=== PATIENT | male | born 1960 | race Caucasian/White ===

== ENCOUNTER 2020-09-22 08:46 | Outpatient (CLI) | payer OTHER ==
[2020-09-22 09:38] VITALS: BP 146/96
--- NOTE | 2020-09-22 09:38 | SLEEP CARE CONSULTATION ---
Information from patient questionnaire entered by Alix Garber. I have reviewed and concur with the information entered by Alix Garber. This document represents the service I personally performed and the decisions made by , Dory Richards ARNP. History of Present Illness Service Date and Time: 09/22/2020 0846 Reason for Visit: New patient, Previously diagnosed sleep apnea, sleep apnea on CPAP therapy Chief Complaint: reports: Snoring, Observed pauses in breathing, Other (Sleep Apnea - diagnosis) Date of Onset: 30 years plus Usual bedtime: 1 am Time it takes to fall asleep: seconds Snores at night: Yes Observed to quit breathing while asleep: Yes Sleeps alone due to snoring: No Number of times waking at night: not often Toss, Turn, or Twitch while sleeping: No Recalls having dreams: No Usually gets out of bed at: 9 am Feels refreshed in the morning: No Morning headache: No Sleepy or fatigued during the day: No Ever fallen asleep while driving: No Takes day naps: No Dreams during day naps: No Prior sleep studies: Yes Year and Where: 2019 - [facility] Additional HPI information: LASHAUN FLORES was diagnosed to have severe, AHI 24 (RDI 36) 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 - Parasomnia Symptoms Ever been unable to move upon waking from sleep: No Walks in sleep: No Talks in sleep: No Ever acted out dreams in sleep: No Ever felt weak in the knees when startled or emotional: No Bothered by creepy, crawly, restless sensations in legs: No Problems with memory or concentration: Yes CPAP Compliance Data - Data Reviewed with Patient Average duration of nightly device use: 28 minutes, 56 seconds Compliance rate %: 0 Current pressure setting (cmH2O): 5-11 Average residual AHI: 35.2 Central apnea: 6.2 Obstructive apnea: 24.9 Hypopnea: 4.1 Average large leak: 0 seconds Compliance data discussion: He obtained his current machine in late March but was unable to use it due to the pressure not being set up on right pressure setting. He is using a [employer].iowear Wisp nasal mask that he finds comfortable. Subjective Missed days of use due to: reports: other (couldn't sleep with machine due to current pressure) Patient concerns: reports: aerophagia. denies: mask discomfort, air blowing in eyes, mask leak noise, condensation in mask/hose, nasal congestion, dry mouth, nose, throat, epistaxis, other Observed to snore while using device: No (don't know for sure) Current pressure setting perceived as: too high On therapy, patient: reports: sleeping better, awakening more refreshed, being more awake and alert during the day, more rested overall. 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 Patient is and lives in [place]. Have you smoked in the past 12 months: No Alcohol use: Yes Alcohol amount and frequency: every 2-3 days Caffeine use: Yes Caffeine amount and frequency: 4 cups coffee daily Family History Family history of sleep disordered breathing: Yes (brother) Family Hx Sleep Apnea: Sibling: Snoring Allergies and Home Medications Drug allergies reviewed: Yes (NKDA) Home medication list reviewed: Yes Allergy and home medication list: [facility] Review of Systems Weight gain over past 5 years: 10 Cardiovascular: denies: high blood pressure Gastrointestinal: denies: heartburn Neurological: denies: headaches Psychiatric: denies: anxiety, depression Ear/Nose/Throat: reports: wisdom teeth removed. denies: tonsillectomy Immunologic: reports: allergies to food or environment Physical Exam Blood Pressure: 146/96 Cuff size: wrist Heart Rate: 80 O2 Saturation: 98 Height: 5 ft 8 in Weight: 176 lb Body Mass Index: 26.7 BMI Classification: Overweight Impression and Plan 1. Obstructive Sleep Apnea-Hypopnea Syndrome, severe, with poor treatment compliance and poor apnea control but he has not been using the machine. On CPAP therapy prior to being unable to use the machine, the patient has had better sleep quality and is more rested overall. He brought in his records and we were able to obtain copies of his last sleep study in 2019. He bought his own machine and he needs the machine set with appropriate pressure so he may use the machine. It is currently set on 6-11 cmH2O which was too much and causing aerophagia. The machine will be adjusted in office to 6-8 cmH2O and we will follow up with him in 1-2 months. He does not have a current DME for supplies. We can set him up once we have current compliance information. Patient's apnea severity and rationale for treatment to reduce apnea, improve sleep quality and reduce cardiovascular and cerebrovascular events was reviewed. * Change auto CPAP pressure at 6-8 cmH2O * Notify me if snoring with mask or feeling that the pressure is too much or too little * Attempt to lose weight * Call this office if any problems using CPAP * Return for follow up in 1-2 months , or sooner if concerns arise Counseling Topics: Weight loss health impact Visit Type: In Office Time Spent with Patient (minutes): 36 Provider Statement: I spent 100% of the Face to Face Visit with the patient with greater than 50% spent counseling the patient and coordination of care.
== END 2020-09-22 08:47 | disposition home or self-care (01) ==
LOC: SC 08:46
PROVIDERS: ATTEND Nurse Practitioner Family
DX: G47.33 Obstructive sleep apnea (adult) (pediatric) (principal); E66.3 Overweight; Z68.26 Body mass index [BMI] 26.0-26.9, adult
CPT/HCPCS: 99203; 99212

== ENCOUNTER 2020-09-22 09:06 | Outpatient (CLI) | payer OTHER ==
[2020-09-22 12:28] LABS: BASOPHILS % (AUTO) 0.6 %; EOSINOPHILS # (AUTO) 0.3 10^3/uL (0.0-0.7); HCT - HEMATOCRIT 47.9 % (42.0-52.0); HGB - HEMOGLOBIN 15.9 g/dL (14.0-18.0); LYMPHOCYTES # (AUTO) 1.7 10^3/uL (1.5-3.5); LYMPHOCYTES % (AUTO) 34.1 %; MEAN CORPUSCULAR HEMOGLOBIN 30.3 pg (27.0-31.0); MEAN CORPUSCULAR HGB CONC 33.2 g/dL (32.0-36.0); MEAN CORPUSCULAR VOLUME 91.2 fL (80.0-94.0); MEAN PLATELET VOLUME 9.9 fL (7.4-11.4); MONOCYTES # (AUTO) 0.5 10^3/uL (0.0-1.0); MONOCYTES % (AUTO) 10.5 %; NEUTROPHILS # (AUTO) 2.4 10^3/uL (1.5-6.6); NEUTROPHILS % (AUTO) 48.4 %; PLT - PLATELET COUNT 225 10^3/uL (130-450); RED BLOOD COUNT 5.25 10^6/uL (4.70-6.10)
[2020-09-22 12:49] LABS: ALBUMIN 4.9 g/dL (3.2-5.5); ALBUMIN/GLOBULIN RATIO 1.4 (1.0-2.2); BILIRUBIN,TOTAL 0.8 mg/dL (0.2-1.0); CALCIUM 9.4 mg/dL (8.5-10.3); CREATININE 0.9 mg/dL (0.6-1.2); POTASSIUM 4.2 mmol/L (3.5-5.0); TOTAL PROTEIN 8.3 g/dL (6.7-8.2)
[2020-09-22 12:50] LABS: PT - PROTHROMBIN TIME 10.9 secs (9.9-12.6)
[2020-09-22 12:58] LABS: PARTIAL THROMBOPLASTIN TIME 27.9 secs (24.9-33.3)
== END 2020-09-22 09:07 | disposition home or self-care (01) ==
LOC: LAB.N 09:06
PROVIDERS: ATTEND Internal Medicine
DX: K06.8 Other specified disorders of gingiva and edentulous alveolar ridge (principal); G47.39 Other sleep apnea; Z12.5 Encounter for screening for malignant neoplasm of prostate
CPT/HCPCS: 36415; 80053; 84153; 85025; 85610; 85730

== ENCOUNTER 2020-11-03 09:44 | Outpatient (CLI) | payer OTHER ==
--- NOTE | 2020-11-03 10:25 | SLEEP CARE CONSULTATION ---
Information from patient questionnaire entered by Alix Garber. I have reviewed and concur with the information entered by Alix Garber. This document represents the service I personally performed and the decisions made by , Dory Richards ARNP. History of Present Illness Service Date and Time: 11/03/2020 0944 Previous diagnosis: Moderate, Obstructive Sleep Apnea-Hypopnea Syndrome AHI: 24 (in 2019)(RDI - 36) Reason for follow up: other (6 week with pressure change) Equipment type: CPAP Mask style: Nasal Mask brand: Respironics (Wisp) Backup mask available: Yes (old mask) Last cushion change: years Prior sleep studies: Yes Year and Where: 2019 - [facility] in [facility] additional information: LASHAUN FLORES was diagnosed to have moderate, AHI 24 (RDI 36), obstructive sleep apnea-hypopnea syndrome and returned today for CPAP therapy 6 week pressure change/compliance follow-up. CPAP Compliance Data - Data Reviewed with Patient Average duration of nightly device use: 5 hr 10 min Compliance rate %: 76.7 Current pressure setting (cmH2O): 6-8 Humidity settin Heated hose settin Average residual AHI: 1.5 Average large leak: 1 min Subjective Patient concerns: reports: dry mouth, nose, throat (does not have a humidity chamber), epistaxis. denies: aerophagia, mask discomfort, air blowing in eyes, mask leak noise, condensation in mask/hose, nasal congestion, other Observed to snore while using device: No Current pressure setting perceived as: too low On therapy, patient: reports: sleeping better, awakening more refreshed, being more awake and alert during the day, more rested overall. denies: drowsiness while driving Initial [place] Sleepiness Scale score: 5 (in 2020) Current [place] Sleepiness Scale score: 2 Allergies and Home Medications Home medication list reviewed: Yes (no new meds) Review of Systems Review of systems same as previous: Yes (no changes) Physical Exam Heart Rate: 87 O2 Saturation: 96 Height: 5 ft 8 in Weight: 176 lb Body Mass Index: 26.7 BMI Classification: Overweight Impression and Plan 1. Obstructive Sleep Apnea-Hypopnea Syndrome, moderate, with adequate treatment compliance and good apnea control. On CPAP therapy, the patient has better sleep quality and is more rested overall. He is now compliant and we can transfer his DME and update his supplies. I will have my office service coordinator inform of DME options. A DWO prescription will then be made. Patient advised to contact this office if further supply problems. He has been having dry mouth and nose with some epistaxis. Oral dryness can be reduced by adjusting humidity setting higher or heated hose lower or by adjusting both settings. He did not get a humidity chamber when he bought his Dreamstation. He should be able to get a water chamber for his machine now which will help reduce oral dryness and epistaxis. He also states he feels the pressure is too low. I will adjust his pressure to 8-10 cmH2O. Goals for apnea control discussed. Patient's apnea severity and rationale for treatment to reduce apnea, improve sleep quality and reduce cardiovascular and cerebrovascular events was reviewed. * Change auto CPAP pressure to 8-10 cmH2O * Transfer DME and update supplies * Notify me if snoring with mask or feeling that the pressure is too much or too little * Attempt to lose weight * Call this office if any problems using CPAP * Return for follow up in 1-2 months, or sooner if concerns arise Counseling Topics: Spare mask, Weight loss health impact Visit Type: In Office Time Spent with Patient (minutes): 21 Provider Statement: I spent 100% of the Face to Face Visit with the patient with greater than 50% spent counseling the patient and coordination of care.
== END 2020-11-03 09:45 | disposition home or self-care (01) ==
LOC: SC 09:44
PROVIDERS: ATTEND Nurse Practitioner Family
DX: G47.33 Obstructive sleep apnea (adult) (pediatric) (principal); E66.3 Overweight; Z68.26 Body mass index [BMI] 26.0-26.9, adult
CPT/HCPCS: 99212; 99213

== ENCOUNTER 2020-11-03 10:35 | Outpatient (CLI) | payer OTHER ==
[2020-11-03 18:21] LABS: BASOPHILS % (AUTO) 0.6 %; EOSINOPHILS # (AUTO) 0.3 10^3/uL (0.0-0.7); EOSINOPHILS % (AUTO) 4.3 %; HCT - HEMATOCRIT 49.8 % (42.0-52.0); HGB - HEMOGLOBIN 16.7 g/dL (14.0-18.0); LYMPHOCYTES # (AUTO) 1.4 10^3/uL (1.5-3.5); LYMPHOCYTES % (AUTO) 20.5 %; MEAN CORPUSCULAR HEMOGLOBIN 31.1 pg (27.0-31.0); MEAN CORPUSCULAR HGB CONC 33.5 g/dL (32.0-36.0); MEAN CORPUSCULAR VOLUME 92.7 fL (80.0-94.0); MEAN PLATELET VOLUME 10.1 fL (7.4-11.4); MONOCYTES # (AUTO) 0.6 10^3/uL (0.0-1.0); MONOCYTES % (AUTO) 9.1 %; NEUTROPHILS # (AUTO) 4.4 10^3/uL (1.5-6.6); NEUTROPHILS % (AUTO) 65.2 %; PLT - PLATELET COUNT 238 10^3/uL (130-450); RED BLOOD COUNT 5.37 10^6/uL (4.70-6.10); RED CELL DISTRIBUTION WIDTH 12.9 % (12.0-15.0); WHITE BLOOD COUNT 6.7 x10^3/uL (4.8-10.8)
[2020-11-03 18:44] LABS: ALBUMIN 4.8 g/dL (3.2-5.5); ALBUMIN/GLOBULIN RATIO 1.5 (1.0-2.2); BILIRUBIN,TOTAL 1.2 mg/dL (0.2-1.0); CALCIUM 9.8 mg/dL (8.5-10.3); CREATININE 0.8 mg/dL (0.6-1.2); POTASSIUM 4.1 mmol/L (3.5-5.0); TOTAL PROTEIN 7.9 g/dL (6.7-8.2)
== END 2020-11-03 10:36 | disposition home or self-care (01) ==
LOC: LAB.N 10:35
PROVIDERS: ATTEND Internal Medicine
DX: E88.09 Other disorders of plasma-protein metabolism, not elsewhere classified (principal); Z12.5 Encounter for screening for malignant neoplasm of prostate; Z79.899 Other long term (current) drug therapy
CPT/HCPCS: 36415; 80053; 84153; 85025

== ENCOUNTER 2020-12-08 09:46 | Outpatient (CLI) | payer OTHER ==
--- NOTE | 2020-12-08 10:17 | SLEEP CARE CONSULTATION ---
Information from patient questionnaire entered by Alix Garber. I have reviewed and concur with the information entered by Alix Garber. This document represents the service I personally performed and the decisions made by me, Dory Richards ARNP. History of Present Illness Service Date and Time: 12/08/2020 0946 Previous diagnosis: Moderate, Obstructive Sleep Apnea-Hypopnea Syndrome AHI: 24 (in 2019) Reason for follow up: one month (with pressure change) Equipment type: CPAP Equipment obtained from: [employer] (has not gotten supplies yet) Mask style: Nasal Backup mask available: No (not getting supplies yet) Prior sleep studies: Yes Year and Where: 2019 - [facility] in [facility] additional information: LASHAUN FLORES was diagnosed to have moderate, AHI 24 (RDI 36), obstructive sleep apnea-hypopnea syndrome and returned today for CPAP therapy one month pressure change follow-up. CPAP Compliance Data - Data Reviewed with Patient Average duration of nightly device use: 3 hr 38 min Compliance rate %: 50 Current pressure setting (cmH2O): 8-10 Humidity settin Heated hose settin Average residual AHI: 0.8 Average large leak: 0 Subjective Missed days of use due to: reports: illness Patient concerns: reports: nasal congestion (more since getting Covid vaccine). denies: aerophagia, mask discomfort, air blowing in eyes, mask leak noise, condensation in mask/hose, dry mouth, nose, throat, epistaxis, other Observed to snore while using device: No Current pressure setting perceived as: too low On therapy, patient: reports: sleeping better, awakening more refreshed, being more awake and alert during the day, more rested overall. denies: drowsiness while driving Initial [place] Sleepiness Scale score: 5 (in 2020) Current [place] Sleepiness Scale score: 3 Allergies and Home Medications Home medication list reviewed: Yes (no changes) Review of Systems Review of systems same as previous: Yes (no changes) Physical Exam Heart Rate: 86 O2 Saturation: 98 Height: 5 ft 8 in Weight: 176 lb Body Mass Index: 26.7 BMI Classification: Overweight Impression and Plan 1. Obstructive Sleep Apnea-Hypopnea Syndrome, moderate, with fair treatment compliance and good apnea control. On CPAP therapy, the patient has better sleep quality and is more rested overall. He feels the beginning pressure is still too low and would like it increased. I will increase pressure to 9-10 cmH2O. He has been having some nasal congestion problems since getting his last Covid vaccine that has been making it hard to use his machine. Nasal congestion can be reduced with increasing the CPAP humidity. The heated hose can be adjusted higher if condensation with higher humidity setting. Saline nasal spray sample obtained over the counter used prior to CPAP to clear nasal secretions and wash off any nasal allergens and reduce congestion to facilitate nasal breathing. He voiced understanding and agreement. He needs to talk to the DME about getting his supplies. A prescription was sent at last visit to facilitate getting a new water chamber and nasal pillows mask. He voiced understanding. He will follow up in 1-2 months to recheck compliance and response to pressure change. Patient's apnea severity and rationale for treatment to reduce apnea, improve sleep quality and reduce cardiovascular and cerebrovascular events was reviewed. * Change auto CPAP pressure to 9-10 cmH2O * Patient to contact [employer] for supplies * Notify me if snoring with mask or feeling that the pressure is too much or too little * Try to lose weight * Call this office if any problems using CPAP * Return for follow up in 1-2 months, or sooner if concerns arise Counseling Topics: Spare mask, Weight loss health impact Visit Type: In Office Time Spent with Patient (minutes): 21 Provider Statement: I spent 100% of the Face to Face Visit with the patient with greater than 50% spent counseling the patient and coordination of care.
== END 2020-12-08 09:47 | disposition home or self-care (01) ==
LOC: SC 09:46
PROVIDERS: ATTEND Nurse Practitioner Family
DX: G47.33 Obstructive sleep apnea (adult) (pediatric) (principal); E66.3 Overweight; Z68.26 Body mass index [BMI] 26.0-26.9, adult
CPT/HCPCS: 99212; 99213

== ENCOUNTER 2021-01-19 10:04 | Outpatient (CLI) | payer OTHER ==
--- NOTE | 2021-01-19 10:36 | SLEEP CARE CONSULTATION ---
Information from patient questionnaire entered by Alix Garber. I have reviewed and concur with the information entered by Alix Garber. This document represents the service I personally performed and the decisions made by , Dory Richards ARNP. History of Present Illness Service Date and Time: 01/19/2021 1004 Previous diagnosis: Moderate, Obstructive Sleep Apnea-Hypopnea Syndrome AHI: 24 (in 2019) Reason for follow up: one month (with pressure change) Equipment type: CPAP Equipment obtained from: [employer] (has not gotten supplies yet, will contact for supplies soon) Mask style: Nasal Backup mask available: No (needs supplies) Prior sleep studies: Yes Year and Where: 2019 - [facility] in [facility] additional information: LASHAUN FLORES was diagnosed to have moderate, AHI 24, obstructive sleep apnea- hypopnea syndrome and returned today for CPAP therapy one month with pressure change follow-up. CPAP Compliance Data - Data Reviewed with Patient Average duration of nightly device use: 3 hr 57 min Compliance rate %: 56.7 Current pressure setting (cmH2O): 9-10 Humidity settin Heated hose settin Average residual AHI: 0.8 Average large leak: 4 min 25 sec Subjective Patient concerns: denies: aerophagia, mask discomfort, air blowing in eyes, mask leak noise, condensation in mask/hose, nasal congestion, dry mouth, nose, throat, epistaxis, other Observed to snore while using device: No Current pressure setting perceived as: comfortable On therapy, patient: reports: sleeping better, awakening more refreshed, being more awake and alert during the day, more rested overall. denies: drowsiness while driving Initial [place] Sleepiness Scale score: 5 (in 2020) Current [place] Sleepiness Scale score: 3 Allergies and Home Medications Home medication list reviewed: Yes (no new meds) Review of Systems Review of systems same as previous: Yes (no changes) Physical Exam Heart Rate: 72 O2 Saturation: 97 Height: 5 ft 8 in Weight: 173 lb Body Mass Index: 26.3 BMI Classification: Overweight Impression and Plan 1. Obstructive Sleep Apnea-Hypopnea Syndrome, moderate, with fair treatment compliance and good apnea control. On CPAP therapy, the patient has better sleep quality and is more rested overall. Patient has had a lot less mask leak issues and facial soreness with the last pressure change and is very happy with the changes. He has been able to wear the mask for longer periods and is not taking it off his face at night. Over the last 3 weeks, I can see that he is trying to get more time with the mask on on his compliance report today. I will follow-up with him in 3 months. I informed the patient of the current recall of the Dreamstation made by [email or web address]. I also let him know that he can go on the [employer] website to find a link to [employer] so he can register his machine. He states he is happy with his CPAP, has not seen any particles or residue in his machine and will continue using this at this time. He voiced understanding and agreement with plan of care. Patient's apnea severity and rationale for treatment to reduce apnea, improve sleep quality and reduce cardiovascular and cerebrovascular events was reviewed. * Continue auto CPAP pressure at 9-10 cmH2O * Patient will register his device on the [employer] website * Notify me if snoring with mask or feeling that the pressure is too much or too little * Attempt to lose weight * Call this office if any problems using CPAP * Return for follow up in 3 months, or sooner if concerns arise Counseling Topics: Spare mask, Weight loss health impact Visit Type: In Office Time Spent with Patient (minutes): 16 Provider Statement: I spent 100% of the Face to Face Visit with the patient with greater than 50% spent counseling the patient and coordination of care.
== END 2021-01-19 10:05 | disposition home or self-care (01) ==
LOC: SC 10:04
PROVIDERS: ATTEND Nurse Practitioner Family
DX: G47.33 Obstructive sleep apnea (adult) (pediatric) (principal); E66.3 Overweight; Z68.26 Body mass index [BMI] 26.0-26.9, adult
CPT/HCPCS: 99212

== ENCOUNTER 2021-04-24 10:49 | Outpatient (CLI) | payer OTHER ==
--- NOTE | 2021-04-24 11:37 | SLEEP CARE CONSULTATION ---
Information from patient questionnaire entered by Carmen Lobato. I have reviewed and concur with the information entered by Carmen Lobato. This document represents the service I personally performed and the decisions made by me, Dory Richards ARNP. History of Present Illness Service Date and Time: 04/24/2021 1049 Previous diagnosis: Moderate, Obstructive Sleep Apnea-Hypopnea Syndrome AHI: 24 (in 2019) Reason for follow up: three month Equipment type: CPAP Equipment obtained from: [employer] (has not gotten supplies yet; has has supplies but will call when he needs them) Mask style: Nasal Backup mask available: Yes (old mask) Prior sleep studies: Yes Year and Where: 2019 - [facility] in [facility] additional information: LASHAUN FLORES was diagnosed to have moderate, AHI 24, obstructive sleep apnea- hypopnea syndrome and returned today for CPAP therapy three month follow-up. Sleep Study - Results Prior sleep studies: Yes Year and Where: 2019 - [facility] CPAP Compliance Data - Data Reviewed with Patient Average duration of nightly device use: 5 hours 10 seconds Compliance rate %: 80 Current pressure setting (cmH2O): 9-10 Humidity settin Heated hose settin Average residual AHI: 0.9 Average large leak: 26 minutes 22 seconds Subjective Patient concerns: denies: aerophagia, mask discomfort, air blowing in eyes, mask leak noise, condensation in mask/hose, nasal congestion, dry mouth, nose, throat, epistaxis, other Observed to snore while using device: No Current pressure setting perceived as: comfortable On therapy, patient: reports: sleeping better, awakening more refreshed, being more awake and alert during the day, more rested overall. denies: drowsiness while driving Initial [place] Sleepiness Scale score: 5 (in 2020) Current [place] Sleepiness Scale score: 3 Allergies and Home Medications Home medication list reviewed: Yes (no changes) Review of Systems Review of systems same as previous: Yes (no changes) Physical Exam Heart Rate: 79 O2 Saturation: 98 Height: 5 ft 8 in Weight: 173 lb Body Mass Index: 26.3 BMI Classification: Overweight Impression and Plan 1. Obstructive Sleep Apnea-Hypopnea Syndrome, moderate, with good treatment compliance and excellent apnea control. On CPAP therapy, the patient has better sleep quality and is more rested overall. He has very satisfied with current CPAP therapy and pressure settings. He does have a DreamStation that we talked about last time he was here being on the recall. He has not yet registered his device because he was not sure what they were doing about it. I informed him that they are replacing these devices and that he should get registered. He agreed and will get his device registered for the recall. Patient states he is getting to the point where he does need more supplies and I encouraged him to contact his [employer] company for those. He voiced understanding. Patient was encouraged to lose weight for their overall health and to reduce apneas. Patient's apnea severity and rationale for treatment to reduce apnea, improve sleep quality and reduce cardiovascular and cerebrovascular events was reviewed. * Continue auto CPAP pressure at 9-10 cmH2O * Patient to register his CPAP device for the recall * Notify me if snoring with mask or feeling that the pressure is too much or too little * Attempt to lose weight * Call this office if any problems using CPAP * Return for follow up in 6 months, or sooner if concerns arise Counseling Topics: Spare mask, Weight loss health impact Visit Type: In Office Time Spent with Patient (minutes): 18 Provider Statement: I spent 100% of the Face to Face Visit with the patient with greater than 50% spent counseling the patient and coordination of care.
== END 2021-04-24 10:50 | disposition home or self-care (01) ==
LOC: SC 10:49
PROVIDERS: ATTEND Nurse Practitioner Family
DX: G47.33 Obstructive sleep apnea (adult) (pediatric) (principal)
CPT/HCPCS: 99212

== ENCOUNTER 2021-11-30 09:24 | Outpatient (CLI) | payer OTHER ==
[2021-11-30 10:03] VITALS: BP 126/76
--- NOTE | 2021-11-30 10:03 | SLEEP CARE CONSULTATION ---
Information from patient questionnaire entered by Sea Bone MA. I have reviewed and concur with the information entered by eSa Bone MA. This document represents the service I personally performed and the decisions made by , Dory Richards ARNP. History of Present Illness Service Date and Time: 11/30/2021 0924 Previous diagnosis: Moderate, Obstructive Sleep Apnea-Hypopnea Syndrome AHI: 24 (in 2019) Reason for follow up: six month (TAHIR, LAST SEEN 04/2021,) Equipment type: CPAP Equipment obtained from: [employer] (will call when he needs them) Mask style: Nasal Mask brand: Respironics (Dreamwear Wisp) Backup mask available: Yes (old mask) Last cushion change: 1 month Prior sleep studies: Yes Year and Where: 2019 - [facility] in [facility] HPI additional information: LASHAUN FLORES was diagnosed to have moderate, AHI 24, obstructive sleep apnea- hypopnea syndrome and returned today for CPAP therapy six month follow-up. Sleep Study - Results Prior sleep studies: Yes Year and Where: 2019 - [facility] in [facility] CPAP Compliance Data - Data Reviewed with Patient Average duration of nightly device use: 5 hours 36 minutes Compliance rate %: 85 (180 days) Current pressure setting (cmH2O): 9-10 Humidity settin Heated hose settin Average residual AHI: 1.1 Average large leak: 21 minutes 5 seconds Subjective Patient concerns: denies: aerophagia, mask discomfort, air blowing in eyes, mask leak noise, condensation in mask/hose, nasal congestion, dry mouth, nose, throat, epistaxis, other Observed to snore while using device: No Current pressure setting perceived as: comfortable On therapy, patient: reports: sleeping better, awakening more refreshed, being more awake and alert during the day, more rested overall. denies: drowsiness while driving Initial Wittmann Sleepiness Scale score: 5 (in 2020) Current Wittmann Sleepiness Scale score: 3 Allergies and Home Medications Drug allergies reviewed: Yes (NKDA) Home medication list reviewed: Yes (no changes) Review of Systems Review of systems same as previous: Yes (no changes) Physical Exam Vital signs obtained and entered by: John BONE CMA AAMA Blood Pressure: 126/76 (pulse 88, left ) Cuff size: wrist Heart Rate: 84 O2 Saturation: 96 (paper mask) Height: 5 ft 8 in Weight: 176 lb Weight change since last visit: 3 lb gain Body Mass Index: 26.7 BMI Classification: Overweight Impression and Plan 1. Obstructive Sleep Apnea-Hypopnea Syndrome, moderate, with fair treatment compliance and good apnea control. On CPAP therapy, the patient has better sleep quality and is more rested overall. Patient denies problems with oral dryness, nasal congestion, epistaxis, skin irritation or aerophagia. Patient's apnea severity and rationale for treatment to reduce apnea, improve sleep quality and reduce cardiovascular and cerebrovascular events was reviewed. Patient was encouraged to lose weight. His current BMI is 26.7. * Continue auto CPAP pressure at 9-10 cmH2O * Notify me if snoring with mask or feeling that the pressure is too much or too little * Attempt to lose weight * Call this office if any problems using CPAP * Return for follow up in 1 year, or sooner if concerns arise Counseling Topics: Spare mask, Weight loss health impact Visit Type: In Office Time Spent with Patient (minutes): 21 Provider Statement: I spent 100% of the Face to Face Visit with the patient with greater than 50% spent counseling the patient and coordination of care.
== END 2021-11-30 09:25 | disposition home or self-care (01) ==
LOC: SC 09:24
PROVIDERS: ATTEND Nurse Practitioner Family
DX: G47.33 Obstructive sleep apnea (adult) (pediatric) (principal); E66.3 Overweight; Z68.26 Body mass index [BMI] 26.0-26.9, adult
CPT/HCPCS: 99212; 99213

== ENCOUNTER 2022-02-06 12:26 | Outpatient (CLI) | payer OTHER ==
[2022-02-06 12:45] LABS: BASOPHILS % (AUTO) 0.6 %; EOSINOPHILS # (AUTO) 0.2 10^3/uL (0.0-0.7); EOSINOPHILS % (AUTO) 3.5 %; HCT - HEMATOCRIT 46.8 % (42.0-52.0); HGB - HEMOGLOBIN 16.3 g/dL (14.0-18.0); LYMPHOCYTES # (AUTO) 1.7 10^3/uL (1.5-3.5); LYMPHOCYTES % (AUTO) 27.3 %; MEAN CORPUSCULAR HEMOGLOBIN 31.7 pg (27.0-31.0); MEAN CORPUSCULAR HGB CONC 34.8 g/dL (32.0-36.0); MEAN CORPUSCULAR VOLUME 90.9 fL (80.0-94.0); MEAN PLATELET VOLUME 9.4 fL (7.4-11.4); MONOCYTES # (AUTO) 0.6 10^3/uL (0.0-1.0); MONOCYTES % (AUTO) 10.2 %; NEUTROPHILS # (AUTO) 3.7 10^3/uL (1.5-6.6); NEUTROPHILS % (AUTO) 58.1 %; PLT - PLATELET COUNT 212 10^3/uL (130-450); RED BLOOD COUNT 5.15 10^6/uL (4.70-6.10); WHITE BLOOD COUNT 6.3 x10^3/uL (4.8-10.8)
[2022-02-06 13:01] LABS: ALBUMIN 4.7 g/dL (3.2-5.5); ALBUMIN/GLOBULIN RATIO 1.4 (1.0-2.2); ALKALINE PHOSPHATASE 56 IU/L (42-121); ALT ALANINE AMINOTRANSFERASE 136 IU/L (10-60); AST ASPARTATE AMINOTRANSFERASE 97 IU/L (10-42); BILIRUBIN,TOTAL 2.1 mg/dL (0.2-1.0); BUN - BLOOD UREA NITROGEN 9 mg/dL (6-20); CALCIUM 9.6 mg/dL (8.5-10.3); CARBON DIOXIDE - CO2 25 mmol/L (21-32); CHLORIDE 102 mmol/L (101-111); CHOL/HDL RATIO 2.8 (<5.0); CHOLESTEROL 225 mg/dL; CREATININE 0.9 mg/dL (0.6-1.2); GFR - MDRD 86 (>89); GLUCOSE 122 mg/dL (70-100); HDL CHOLESTEROL 80 mg/dL; LDL CHOLESTEROL,CALCULATED 131 mg/dL; LDL/HDL RATIO 1.6 (<3.6); SODIUM 138 mmol/L (135-145); TRIGLYCERIDES 71 mg/dL; VLDL CHOLESTEROL 14 mg/dL
[2022-02-06 13:10] LABS: THYROID STIMULATING HORMONE 2.02 uIU/mL (0.34-5.60)
[2022-02-06 13:52] LABS: BILIRUBIN,URINE SMALL (NEGATIVE); GLUCOSE, URINE (UA) NEGATIVE (NEGATIVE); KETONES,URINE (UA) TRACE mg/dL (NEGATIVE); LEUKOCYTE ESTERASE, URINE NEGATIVE (NEGATIVE); NITRITE,URINE NEGATIVE (NEGATIVE); OCCULT BLOOD,URINE NEGATIVE (NEGATIVE); PH,URINE 8.5 PH (5.0-7.5); PROTEIN,URINE TRACE mg/dL (NEGATIVE); UROBILINOGEN,URINE 1 (NORMAL) E.U./dL (NORMAL)
[2022-02-06 14:08] LABS: CLARITY,URINE CLEAR (CLEAR)
[2022-02-06 14:09] LABS: BACTERIA,URINE Few /HPF (None Seen); RBC,URINE 0-5 /HPF (0-5); SQUAMOUS EPITHELIAL CELL,UR FEW Squamous (<= Few); WBC,URINE 0-3 /HPF (0-3)
== END 2022-02-06 12:27 | disposition home or self-care (01) ==
LOC: LAB 12:26
PROVIDERS: ATTEND Nurse Practitioner
DX: R53.83 Other fatigue (principal); Z13.220 Encounter for screening for lipoid disorders; E88.09 Other disorders of plasma-protein metabolism, not elsewhere classified; Z12.5 Encounter for screening for malignant neoplasm of prostate
CPT/HCPCS: 36415; 80053; 80061; 81001; 83721; 84153; 84443; 85025; 87086

== ENCOUNTER 2022-08-14 10:12 | Outpatient (CLI) | payer BC ==
[2022-08-14 10:29] LABS: BASOPHILS % (AUTO) 0.7 %; EOSINOPHILS # (AUTO) 0.3 10^3/uL (0.0-0.7); EOSINOPHILS % (AUTO) 4.6 %; HCT - HEMATOCRIT 50.8 % (42.0-52.0); HGB - HEMOGLOBIN 17.2 g/dL (14.0-18.0); LYMPHOCYTES # (AUTO) 1.7 10^3/uL (1.5-3.5); LYMPHOCYTES % (AUTO) 28.5 %; MEAN CORPUSCULAR HEMOGLOBIN 30.9 pg (27.0-31.0); MEAN CORPUSCULAR HGB CONC 33.9 g/dL (32.0-36.0); MEAN CORPUSCULAR VOLUME 91.2 fL (80.0-94.0); MEAN PLATELET VOLUME 9.4 fL (7.4-11.4); MONOCYTES # (AUTO) 0.7 10^3/uL (0.0-1.0); MONOCYTES % (AUTO) 10.8 %; NEUTROPHILS # (AUTO) 3.3 10^3/uL (1.5-6.6); NEUTROPHILS % (AUTO) 54.7 %; PLT - PLATELET COUNT 225 10^3/uL (130-450); RED BLOOD COUNT 5.57 10^6/uL (4.70-6.10); RED CELL DISTRIBUTION WIDTH 11.6 % (12.0-15.0)
[2022-08-14 10:50] LABS: ALBUMIN 4.4 g/dL (3.2-5.5); ALBUMIN/GLOBULIN RATIO 1.2 (1.0-2.2); ALKALINE PHOSPHATASE 53 IU/L (42-121); ALT ALANINE AMINOTRANSFERASE 60 IU/L (10-60); AST ASPARTATE AMINOTRANSFERASE 39 IU/L (10-42); BILIRUBIN,TOTAL 1.6 mg/dL (0.2-1.0); BUN - BLOOD UREA NITROGEN 9 mg/dL (6-20); CALCIUM 9.2 mg/dL (8.5-10.3); CARBON DIOXIDE - CO2 26 mmol/L (21-32); CHLORIDE 97 mmol/L (101-111); CHOL/HDL RATIO 3.1 (<5.0); CHOLESTEROL 217 mg/dL; CREATININE 0.8 mg/dL (0.6-1.2); GFR - MDRD 99 (>89); GLUCOSE 120 mg/dL (70-100); HDL CHOLESTEROL 69 mg/dL; LDL CHOLESTEROL,CALCULATED 136 mg/dL; POTASSIUM 3.9 mmol/L (3.5-5.0); SODIUM 134 mmol/L (135-145); TOTAL PROTEIN 8.2 g/dL (6.7-8.2); TRIGLYCERIDES 61 mg/dL; VLDL CHOLESTEROL 12 mg/dL
[2022-08-14 11:03] LABS: THYROID STIMULATING HORMONE 2.78 uIU/mL (0.34-5.60)
== END 2022-08-14 10:13 | disposition home or self-care (01) ==
LOC: LAB 10:12
PROVIDERS: ATTEND Nurse Practitioner
DX: E78.5 Hyperlipidemia, unspecified (principal); R74.01 Elevation of levels of liver transaminase levels; Z12.5 Encounter for screening for malignant neoplasm of prostate; Z13.29 Encounter for screening for other suspected endocrine disorder
CPT/HCPCS: 36415; 80053; 80061; 83721; 84153; 84443; 85025

== ENCOUNTER 2022-11-20 09:05 | Outpatient (CLI) | payer BC ==
--- NOTE | 2022-11-20 09:39 | Sleep Patient Instructions ---
Sleep Center Visit Summary - Patient Visit Information Reason for Visit: Annual visit for CPAP therapy - Patient Instructions Additional Instructions: You were here for follow up of CPAP therapy. You will be continued on CPAP therapy with pressure at 10 cmH2O. You should follow up with sleep care in 12 months. We will sent a reminder in mail in about 11 months. You may contact us sooner for any questions or concerns. - Clinic Information Contact: [facility] [address] [place] [address] [email or web address] T: [phone]
[2022-11-20 09:44] VITALS: BP 124/70
--- NOTE | 2022-11-20 09:44 | SLEEP CARE CONSULTATION ---
Information from patient questionnaire entered by Yamini Smith. I have reviewed and concur with the information entered by Yamini Smith. This document represents the service I personally performed and the decisions made by me, Dory Richards ARNP. History of Present Illness Service Date and Time: 11/20/2022 09 Previous diagnosis: Moderate, Obstructive Sleep Apnea-Hypopnea Syndrome AHI: 24 (in 2019) Reason for follow up: annual (LAST SEEN 11/2021) Equipment type: CPAP ([employer]ONG Dreamstation recertified; SD CARD NEEDED FOR DOWNLOAD AND PRESSURE CHANGES) Equipment obtained from: Other ([facility]; getting supplies) Mask style: Nasal Backup mask available: Yes (old mask) Last cushion change: 3 weeks Prior sleep studies: Yes Year and Where: 2019 - [facility] in [facility] HPI additional information: LASHAUN FLORES was diagnosed to have moderate, AHI 24, obstructive sleep apnea- hypopnea syndrome and returned today for CPAP therapy annual follow-up. Sleep Study - Results Prior sleep studies: Yes Year and Where: 2019 - [facility] CPAP Compliance Data - Data Reviewed with Patient Average duration of nightly device use: 5 hours 8 minutes Compliance rate %: 76.7 (30/30 days used ) Current pressure setting (cmH2O): 10.0 Average residual AHI: 0.6 Central apnea: 0.1 Obstructive apnea: 0.2 Average large leak: 2 hours 19 minutes 18 secs Subjective Missed days of use due to: reports: mask issues (had a broken headgear that made it difficult to use mask) Patient concerns: reports: nasal congestion (from sinus issues and not machine). denies: aerophagia, mask discomfort, air blowing in eyes, mask leak noise, condensation in mask/hose, dry mouth, nose, throat, epistaxis Observed to snore while using device: No Current pressure setting perceived as: comfortable On therapy, patient: reports: sleeping better, awakening more refreshed, being more awake and alert during the day, more rested overall. denies: drowsiness while driving Initial [place] Sleepiness Scale score: 5 (in 2020) Current Rosebud Sleepiness Scale score: 1 (11/20/22) Allergies and Home Medications Known drug allergies: No Drug allergies reviewed: Yes Home medication list reviewed: Yes (no changes) Review of Systems Review of systems same as previous: Yes (no changes) Physical Exam Vital signs obtained and entered by: YAMINI Lund MA Blood Pressure: 124/70 (LEFT ARM) Cuff size: regular Heart Rate: 80 O2 Saturation: 94 Height: 5 ft 8 in Weight: 185 lb 9.6 oz Body Mass Index: 28.2 BMI Classification: Overweight Impression and Plan 1. Obstructive Sleep Apnea-Hypopnea Syndrome, moderate, with good treatment compliance and good apnea control. On CPAP therapy, the patient has better sleep quality and is more rested overall. He had difficulty in getting supplies and was running out after he changed insurance companies and then his DME supplier. He says it is straightened out now and he is expecting a shipment of supplies soon. Patient has significant improvement of their sleep apnea and is satisfied with current CPAP therapy. Patient denies problems with oral dryness, nasal congestion, epistaxis, skin irritation or aerophagia. Patient's apnea severity and rationale for treatment to reduce apnea, improve sleep quality and reduce cardiovascular and cerebrovascular events was reviewed. 2. Overweight, unspecified. Currently patients BMI is 28.2. Obesity increases the risk of apnea, CPAP pressure requirements and overall health risks especially cardiovascular and diabetes. Thus patient is advised to lose weight. * Continue auto CPAP pressure at 10 cmH2O * Update supplies * Notify me if snoring with mask or feeling that the pressure is too much or too little * Attempt to lose weight * Call this office if any problems using CPAP * Return for follow up in 1 year, or sooner if concerns arise Counseling Topics: Spare mask, Weight loss health impact Visit Type: In Office Time Spent with Patient (minutes): 23 Provider Statement: I spent 100% of the Face to Face Visit with the patient with greater than 50% spent counseling the patient and coordination of care.
== END 2022-11-20 09:06 | disposition home or self-care (01) ==
LOC: SC 09:05
PROVIDERS: ATTEND Nurse Practitioner Family
DX: G47.33 Obstructive sleep apnea (adult) (pediatric) (principal); E66.3 Overweight; Z68.28 Body mass index [BMI] 28.0-28.9, adult
CPT/HCPCS: 99212; 99213

== ENCOUNTER 2023-02-15 10:12 | Outpatient (CLI) | payer BC ==
[2023-02-15 10:45] LABS: ALBUMIN 4.4 g/dL (3.2-5.5); ALBUMIN/GLOBULIN RATIO 1.5 (1.0-2.2); ALKALINE PHOSPHATASE 62 IU/L (42-121); ALT ALANINE AMINOTRANSFERASE 99 IU/L (10-60); AST ASPARTATE AMINOTRANSFERASE 78 IU/L (10-42); BILIRUBIN,TOTAL 1.1 mg/dL (0.2-1.0); BUN - BLOOD UREA NITROGEN 11 mg/dL (6-20); CARBON DIOXIDE - CO2 27 mmol/L (21-32); CHLORIDE 103 mmol/L (101-111); CHOL/HDL RATIO 3.5 (<5.0); CHOLESTEROL 183 mg/dL; CREATININE 0.9 mg/dL (0.6-1.3); GFR - MDRD 86 (>89); GLUCOSE 123 mg/dL (74-104); HDL CHOLESTEROL 52 mg/dL; LDL CHOLESTEROL,CALCULATED 112 mg/dL; LDL/HDL RATIO 2.2 (<3.6); SODIUM 135 mmol/L (135-145); TOTAL PROTEIN 7.3 g/dL (6.4-8.9); TRIGLYCERIDES 94 mg/dL (48-352); VLDL CHOLESTEROL 19 mg/dL
[2023-02-15 14:21] LABS: ESTIMATED AVERAGE GLUCOSE 94 mg/dL (70-100); HEMOGLOBIN A1c% 4.9 % (4.27-6.07)
== END 2023-02-15 10:13 | disposition home or self-care (01) ==
LOC: LAB 10:12
PROVIDERS: ATTEND Nurse Practitioner
DX: E78.5 Hyperlipidemia, unspecified (principal); R74.01 Elevation of levels of liver transaminase levels; R73.03 Prediabetes
CPT/HCPCS: 36415; 80053; 80061; 83036; 83721

== ENCOUNTER 2023-05-07 14:53 | Outpatient (CLI) | payer BC | END 2023-05-07 14:54 | disposition home or self-care (01) | LOC: DI 14:53 | PROVIDERS: ATTEND Nurse Practitioner | DX: R01.1 Cardiac murmur, unspecified (principal); I51.7 Cardiomegaly; I34.0 Nonrheumatic mitral (valve) insufficiency | CPT/HCPCS: 93306 ==

== ENCOUNTER 2023-08-09 11:28 | Outpatient (CLI) | payer BC ==
[2023-08-09 11:56] LABS: ALBUMIN 4.5 g/dL (3.2-5.5); ALBUMIN/GLOBULIN RATIO 1.7 (1.0-2.2); BILIRUBIN,TOTAL 2.2 mg/dL (0.2-1.0); CALCIUM 9.1 mg/dL (8.5-10.3); CREATININE 0.8 mg/dL (0.6-1.3); POTASSIUM 3.8 mmol/L (3.5-4.5); TOTAL PROTEIN 7.2 g/dL (6.4-8.9)
[2023-08-09 12:22] LABS: ESTIMATED AVERAGE GLUCOSE 88 mg/dL (70-100); HEMOGLOBIN A1c% 4.7 % (4.27-6.07)
== END 2023-08-09 11:29 | disposition home or self-care (01) ==
LOC: LAB 11:28
PROVIDERS: ATTEND Nurse Practitioner
DX: R73.03 Prediabetes (principal); R74.01 Elevation of levels of liver transaminase levels
CPT/HCPCS: 36415; 80053; 83036